=== PATIENT | female | born 1985 | race Caucasian/White ===

== ENCOUNTER → 2019-10-04 13:15 | Outpatient (BNVA) | payer OTHER, SELFPAY | PROVIDERS: Family Provider Physician Assistant Medical; PCP Physician Assistant Medical; Visit Provider Family Medicine | DX: J10.1 Influenza due to other identified influenza virus with other respiratory manifestations (principal); R50.9 Fever, unspecified | CPT/HCPCS: 87081; 87804; 87880 ==

== ENCOUNTER → 2019-11-03 12:38 | Outpatient (BNVA) | payer OTHER, SELFPAY | PROVIDERS: Family Provider Physician Assistant Medical; PCP Physician Assistant Medical; Visit Provider Nurse Practitioner Family | DX: N39.0 Urinary tract infection, site not specified (principal) | CPT/HCPCS: 81000 ==

== ENCOUNTER → 2020-06-18 13:26 | Outpatient (BNVA) | payer OTHER, SELFPAY | PROVIDERS: Family Provider Physician Assistant Medical; PCP Physician Assistant Medical; Visit Provider Nurse Practitioner Family | DX: J02.9 Acute pharyngitis, unspecified (principal); J01.40 Acute pansinusitis, unspecified | CPT/HCPCS: 87071; 87880 ==

== ENCOUNTER 2020-09-02 14:47 | Emergency (ER) | payer OTHER, SELFPAY ==
[2020-09-02 14:56] VITALS: BP 119/79; PULSE 81; RESP 16; TEMP 36.7; O2SAT 100; BMI 24.7
[2020-09-02 14:59] VITALS: BP 97/69; PULSE 79; RESP 18; O2SAT 98
[2020-09-02 15:59] VITALS: BP 108/71; PULSE 73; RESP 18; O2SAT 100
[2020-09-02 16:00] VITALS: BP 108/71; PULSE 108; RESP 18; O2SAT 100
--- NOTE | 2020-09-02 16:15 | ED_ITS ---
HPI - General Adult General: Chief complaint: Vaginal Bleeding Stated complaint: LESS THAN 20 WKS PREG/BLEEDING Time Seen by Provider: 09/02/20 15:55 History of Present Illness: HPI narrative: Patient is a well-appearing 35-year-old female who is G4 para 2 with 1 prior miscarriage and history of bleeding in the first trimester with both live births seen for painless vaginal bleeding today. She states first day last menstrual period was July 06, 2020. She has had no dysuria, frequency, burning, itching, or cramping. She use the restroom at work and saw blood in the toilet and got concerned. On arrival, she appears well and denies abdominal pain, nausea, vomiting, fever, cough. She has no other acute complaints. Of note, with her prior pregnancies, both she and her took medication for trichomoniasis. She states that since that time, she has had no symptoms and is not concerned about infection at this time. She already plans to see her DATA ENTRY SPECIALIST tomorrow. Should be discharged home in stable condition. Review of Systems General: Reports: 10 or more systems reviewed and unremarkable except in HPI and below PFSH ED PFSH: Social History Smoking and tobacco status: never smoked Alcohol intake: never Physical Exam Const: COMMON NORMALS: no acute distress, patient oriented x3 and alert HENMT: COMMON NORMALS: normocephalic and atraumatic HEAD & SCALP: normocephalic and atraumatic Eye: COMMON NORMALS: Equal, round and reactive pupils present, EOMs intact sundeep aterally and no scleral icterus PUPIL: Yes Equal, round and reactive pupils present Resp: COMMON NORMALS: normal respiratory effort and No retractions Cardio: COMMON NORMALS: regular rate, regular rhythm and No murmurs present (Cardio) RATE: regular rate RHYTHM: regular rhythm GI: COMMON NORMALS: Normal to inspection, nondistended, normoactive bowel sounds present, Soft to palpation and non-tender PALPATION: Yes Soft to palpation OTHER: Abdomen is soft and nontender. Bedside ultrasound reveals a single intrauterine with vigorous heartbeat. She has no active vaginal bleeding at this time and exam is deferred. Neuro: COMMON NORMALS: patient oriented x3 SENSORIUM/ORIENTATION: Yes alert Skin: COMMON NORMALS: no rashes or lesions noted GENERAL SKIN EXAM: no rashes or lesions noted Course Vital Signs: Vital signs: Vital Signs Temperature 98.0 F 09/02/20 14:56 Pulse Rate 74 09/02/20 16:21 Respiratory Rate 18 09/02/20 16:21 Blood Pressure 108/71 09/02/20 16:21 Pulse Oximetry 100 09/02/20 16:21 MDM - General Adult MDM Narrative: Medical decision making narrative: Patient remained hemodynamically stable throughout ED course. Bedside ultrasound shows a single intrauterine which appears viable at this time. She has no active bleeding or cramping. She has no fever. Urinalysis shows no evidence of infection. She plans to see her DATA ENTRY SPECIALIST doctor tomorrow. She will be discharged home in stable condition with close follow-up to DATA ENTRY SPECIALIST. She knows she is always welcome back in the emergency department should her symptoms get worse before outpatient follow-up. Lab Data: Labs: Lab Results 09/02/20 Range/Units 16:18 Urine Color Yellow (Yellow) Urine Appearance Hazy A (CLEAR) Urine pH 6 (5-7) Ur Specific Gravit y 1.020 (1.005-1.030) Urine Protein Neg (Negative) Urine Glucose (UA) Norm (Normal) Urine Ketones Negative (Negative) Urine Blood Neg (Negative) Urine Nitrate Negative (Negative) Urine Bilirubin Neg (Negative) Urine Urobilinogen Norm (Negative) mg/dL Ur Leukocyte Jane ase Negative (Negative) Amorphous Sediment Not Reportable Discharge Plan Discharge Patient Disposition: Home Clinical Impression: First trimester bleeding Condition: Stable Prescriptions: No Action Ness Allergy 1 tab PO QAM RF: 0 Tylenol Extra Strength 500 mg Tablet 1,000 mg PO PRN RF: 0 Vitamin C 500 mg Tablet 1,000 mg PO QAM RF: 0 28 mg iron- 800 mcg Tablet 1 tab PO QAM RF: 0 Discharge Orders: Discharge ED (Routine); Ordered 09/02/20 Ordered By: Bakari Moreira Referrals: William Cannon [Primary Care Provider] - Discharge Diet: Usual diet Discharge Activity: Resume usual activity Activity Restrictions/Additional Instructions: Your urine test shows no evidence of infection. Please follow-up with your DATA ENTRY SPECIALIST doctor as previously planned. You are always welcome back in the emergency department if you have further concerns, worse bleeding, or cramps. At this time, I do not see any other ways to decrease your chance of miscarriage. Bedside ultrasound showed a single intrauterine with vigorous heartbeat. Coding Level of Care Code ED Doughnut Icer for Chg Fwd Exam Detailed
[2020-09-02 16:21] VITALS: BP 108/71; PULSE 74; RESP 18; O2SAT 100
[2020-09-02 16:26] LABS: Add Urine Microscopic? YES; Bilirubin Urine Neg (Negative); Blood Urine Neg (Negative); Glucose Urine UA Norm (Normal); Ketones Urine Negative (Negative); Leukocyte Esterase Urine Negative (Negative); Nitrate Urine Negative (Negative); Protein Urine Neg (Negative); Urine Appearance Hazy (CLEAR); Urine Color Yellow (Yellow); Urobilinogen Urine Norm (Negative); pH Urine 6 (5-7)
[2020-09-02 16:52] LABS: Add Urine Culture? No; Bacteria Urine 2+ /hpf; Mucus Urine TRACE /hpf
[2020-09-02 16:53] VITALS: BP 108/71; PULSE 77; RESP 18; TEMP 36.6; O2SAT 100
== END 2020-09-02 16:59 | disposition home or self-care (01) ==
PROVIDERS: Emergency Provider Student in an Organized Health Care Education/Training Program; PCP Physician Assistant Medical
DX: O20.9 Hemorrhage in early pregnancy, unspecified (principal); Z3A.00 Weeks of gestation of pregnancy not specified
CPT/HCPCS: 12345; 81001; 99281; 99282

== ENCOUNTER 2021-03-29 19:50 | Inpatient (IN) | payer OTHER, SELFPAY ==
[2021-03-29] VITALS (11 sets, daily range): BP systolic 109–161; BP diastolic 53–84; PULSE 64–196; RESP 20; O2SAT 89–100; BMI 29.7
[2021-03-29 20:32] LABS: Basophils % 0.1 %; Eosinophils # 0.1 10^3/uL (0.0-0.8); Eosinophils % 1.4 %; Hematocrit 33.9 % (37.0-47.0); Hemoglobin 11.3 g/dL (11.5-15.3); Lymphocytes # 2.2 10^3/uL (0.8-4.8); Lymphocytes % 26.3 %; Mean Corpuscular HGB Conc 33.3 g/dL (30.0-36.0); Mean Corpuscular Hemoglobin 29.6 pg (28.0-34.0); Mean Corpuscular Volume 88.7 fl (81-99); Mean Platelet Volume 10.8 fL (7.4-10.4); Monocytes # 0.6 10^3/uL (0.2-0.9); Neutrophils # 5.42 10^3/uL (1.8-7.7); Neutrophils % 64.7 %; Nucleated Red Blood Cells % 0 %; Platelet Count 156 10^3/cmm (130-400); Red Blood Count 3.82 10^6/uL (4.1-5.3); Red Cell Distribution Width 14.5 % (12.1-15.1); White Blood Count 8.4 10^3/uL (4.0-10.0)
[2021-03-29] MEDS: miSOPROStol 100 mcg tablet 25 MCG SUBLINGUAL (20:53)
[2021-03-29 21:43] LABS: Nitrazine Paper, PH Positive
[2021-03-29] MEDS: lactated ringers 1,000 ML 999 ML IV (22:27)
[2021-03-29] MEDS: fentaNYL 50 mcg/mL INJ 2mL IVP (23:07)
--- NOTE | 2021-03-29 23:33 | ANES.PREANE2 ---
Pre-Anesthetic Assessment Pre-Anesthetic Assessment: Height/Weight: Height 1.6 m Weight 76.204 kg Pulse Resp BP 90 20 H 161/74 03/29/21 23:18 03/29/21 23:07 03/29/21 23:18 Preop Diagnosis: labor Proposed Procedure: labor= Was Beta Kanwal taken within 24 hours: N/A Was Clonidine taken within 24 hours: N/A Last Intake: 18:00 Social: Social History: No alcohol and No tobacco Exam: Pre-Anes Outpt Exam: alert, oriented x 3, clear to auscultation bilaterally and regular rate & rhythm Airway: Submandibular: WNL Cervical ROM: WNL MP: 2 Pulmonary: Pulmonary: None reported CV/HEM: CV/HEM: None reported : : None reported Hepatic: Hepatic: None reported GI: GI: None reported Metabolic: Metabolic: None reported Musc/skel: Musc/skel: None reported Neuropsych: Neuropsych: None reported Anesthetic Plan: ASA status: 2 Anesthesia: Regional (specify below) (epidural) Risk of > 500 ml blood loss (7ml/kg in children): No Meds/Allergies Current Medications: Current Medications Generic Name Dose Route Start Last Admin Trade Name Freq PRN Reason Stop Dose Admin Fentanyl 25 - 100 mcg 03/29/21 23:00 03/29/21 23:07 Fentanyl 50 Mcg/ Ml Inj 2ml IVP 25 mcg Q1H PRN Administration SEVERE PAIN Lactated Ringer's 1,000 mls @ 999 m ls/hr 03/29/21 22:20 03/29/21 22:27 Lactated Ringers IV 999 mls/hr .Q1H1M PRN Administration See label comment s PFSH Anesthesia PFSH: Social History Smoking and tobacco status: former smoker Alcohol intake: never Female Reproductive History: : 3 Data Anesthesia CBC & Chem 7: 03/29/21 20:15 Other Labs: Laboratory Results - last 48 hr 03/29/21 20:15 WBC 8.4 RBC 3.82 L Hgb 11.3 L Hct 33.9 L MCV 88.7 MCH 29.6 MCHC 33.3 RDW 14.5 Plt Count 156 MPV 10.8 H Neut % (Auto) 64.7 Lymph % (Auto) 26.3 Murray % (Auto) 7.0 Eos % (Auto) 1.4 Baso % (Auto) 0.1 Neut # (Auto) 5.42 Lymph # (Auto) 2.2 Murray # (Auto) 0.6 Eos # (Auto) 0.1 Baso # (Auto) 0.0 Nucleated RBC % (auto) 0 Nucleated RBCs # 0.0 Cardiac Studies: No Data to Display
[2021-03-29] MEDS: oxytocin 30 UNIT/500 ML BAG 500 UNIT IV (23:48)
--- NOTE | 2021-03-29 23:59 | ANES.PROC ---
Anesthesia Procedures Procedure/Date: 03/29/21 epidural Procedure Narrative: Spoke with pt on risk and benefits of epidural with consent signed. Place pt in sitting position and began to prep back. Pt with contraction and stated I need to push. Pt started to push. Epi aborted and pt found to be complete.
[2021-03-30] VITALS (22 sets, daily range): BP systolic 98–148; BP diastolic 56–84; PULSE 53–102; RESP 18; TEMP 36.2–36.4; O2SAT 98–99
--- NOTE | 2021-03-30 00:03 | PM.OPHPUD ---
Labor & Delivery H&P Update Date of Procedure: March 30, 2021 Date H&P Performed: 03/25/21 H&P update information: I have reviewed H&P completed within last 30 days, I have examined patient prior to procedure and Changes to prior documentation as noted here Changes to previous documentation: The patient is 4 cm dilated and having contractions occasionally Admission Diagnosis: Preop diagnosis: labor Planned procedure: Spontaneous vaginal delivery
--- NOTE | 2021-03-30 00:04 | P.PCNOB_ITS ---
Delivery Note: Date of delivery: March 30, 2021 Pre-delivery diagnoses: 3 para 1-0-1-1 at 38 weeks estimated gestational age with spontaneous rupture membranes Post-delivery diagnoses: Same Procedure: Spontaneous vaginal delivery Op report anesthesia: None Delivering Physician: Henrique Puentes Estimated blood loss (mL): 75 Pre-Delivery Course: The patient presented to the hospital 2 hours after having spontaneous rupture membranes. She was noted to have occasional contractions. Her cervix was 40% effaced. She was placed on Cytotec 25 mcg sublingual x1. She then progressed to complete without difficulty. Her was unremarkable. She was GBS negative. Her blood type was O+. Her initial glucose screen was positive, but her 3-hour glucose screen was negative. She is rubella nonimmune. Delivery: DELIVERY: The patient progressed to complete without difficulty. She delivered a male with a weight of 7 pounds 15 ounces with Apgars of 8, 10. The baby was delivered from the WESLY position and placed on the mother's abdomen. The cord was then clamped and cut 1 minute after delivery. There was no nuchal cord. There was no meconium. The placenta and 3 vessel cord were delivered intact shortly thereafter. The perineum and vaginal vault were carefully examined. No lacerations were noted. Both the mother and the baby were in st able condition. Post-Delivery Status: Good A&P Assessment and plan (1) 38 weeks gestation of : Status: Acute (2) Spontaneous vaginal delivery: Status: Acute Coding Level of Care Code Acute Mosaic Technician for Chg Fwd Diagnoses 38 weeks gestation of Z3A.38 Spontaneous vaginal delivery O80
[2021-03-30] MEDS: dextrose 5%-lactated ringers 1,000 ML 125 ML IV (00:08)
[2021-03-30] MEDS: prenatal vitamin Capsule 1 CAP PO (09:30)
[2021-03-30] MEDS: ibuprofen 800 mg tablet PO ×3 (09:30→21:07)
[2021-03-30] MEDS: docusate sodium 100 mg Capsule PO ×2 (09:30→18:11)
--- NOTE | 2021-03-30 10:00 | PC.NURSE ---
Dr. Puentes called and asked about scheduling a tubal for the next morning. This nurse asked the patient if she still wanted to have a tubal while in the hospital and patient expressed that they are looking into other options. Patient will schedule a tubal at six weeks, if it is desired.
[2021-03-30 13:32] LABS: Hematocrit 34.6 % (37.0-47.0); Hemoglobin 11.3 g/dL (11.5-15.3); Mean Corpuscular HGB Conc 32.7 g/dL (30.0-36.0); Mean Corpuscular Hemoglobin 29.4 pg (28.0-34.0); Mean Corpuscular Volume 90.1 fl (81-99); Mean Platelet Volume 11.4 fL (7.4-10.4); Platelet Count 158 10^3/cmm (130-400); Red Blood Count 3.84 10^6/uL (4.1-5.3); Red Cell Distribution Width 14.6 % (12.1-15.1); White Blood Count 9.4 10^3/uL (4.0-10.0)
[2021-03-31 01:00] VITALS: RESP 15
[2021-03-31 03:43] VITALS: BP 108/68; PULSE 65; TEMP 35.8
--- NOTE | 2021-03-31 07:37 | PM.OBGYDC ---
Discharge Providers SOCIAL MEDIA SR STRATEGY MANAGER Date of Admission: 03/29/21 19:50 Date of Discharge: 03/31/21 Attending Provider at Admission: Henrique Puentes MD Attending Provider at Discharge: Henrique Puentes MD Primary Care Provider: William Cannon Diagnoses at Discharge Discharge Diagnosis (1) 38 weeks gestation of : Status: Acute (2) Spontaneous vaginal delivery: Status: Acute Reason for Visit Reason for Visit: Poss SROM Hospital Course Hospital Course The patient presented to the hospital at 38 weeks estimated gestational age with spontaneous rupture of membranes. A single Cytotec was placed sublingually, and the patient progressed to complete without difficulty 6 hours after rupturing her membranes. Her delivery was unremarkable. Her course was also been unremarkable. Her bleeding has been within normal limits. She has breast-fed well. There have been no concerns. Information Peripartum Data: Delivery Method: Vaginal Physical Exam Narrative: EXAM NARRATIVE: The patient is alert. She appears comfortable. Her heart has a regular rate and rhythm with no murmurs appreciated. Lungs are clear to auscultation bilaterally. Her fundus is firm and below the umbilicus. Discharge Data Data Completed and Pending: Pending at discharge Category Date Time Status [facility] SARS-CoV-2 RNA Routine Lab 03/30/21 00:38 Received Labs from last 24 hours 03/30/21 12:52 WBC 9.4 RBC 3.84 L Hgb 11.3 L Hct 34.6 L MCV 90.1 MCH 29.4 MCHC 32.7 RDW 14.6 Plt Count 158 MPV 11.4 H Vitals: Last Vital Signs Temp 96.4 F L 03/31/21 03:43 Pulse 65 03/31/21 03:43 Resp 15 03/31/21 01:00 BP 108/68 03/31/21 03:43 Pulse Ox 99 03/30/21 16:11 Discharge Plan Discharge Patient Disposition: Home Condition: Stable Prescriptions: New ibuprofen 800 mg Tablet 800 mg PO TID Qty: 45 RF: 0 Continued Ness Allergy 1 tab PO QAM RF: 0 ascorbic acid (vitamin C) [Vitamin C] 500 mg Tablet 1,000 mg PO QAM RF: 0 PNV cmb#95-ferrous fumarate-FA [] 28 mg iron- 800 mcg Tablet 1 tab PO QAM RF: 0 Discharge Orders: Discharge Order (Routine); Ordered 03/31/21 Ordered By: Henrique Puentes Referrals: Henrique Puentes MD [Physician] - 6 Weeks Discharge Diet: Usual diet Discharge Activity: Limit activity as instructed Patient Instructions: Vaginal Delivery (DC), OB Discharge Report, OB Food/Drug Interaction Guide, Opioid Safety, OB Proud Parent Packet, OB Vaginal Deliveries, Abnormal Bleeding, Depression Discharge Attestations SOCIAL MEDIA SR STRATEGY MANAGER Time Spent in Discharge Care*: less than 30 min Specific Discharge Activities: Specific discharge activities: educating patient Coding Level of Care Code Acute Automotive Service Writer for Chg Fwd Diagnoses 38 weeks gestation of Z3A.38 Spontaneous vaginal delivery O80
[2021-03-31 09:04] VITALS: BP 123/69; PULSE 75; TEMP 36.3
[2021-03-31 09:12] VITALS: RESP 17
[2021-03-31] MEDS: ibuprofen 800 mg tablet PO (09:34)
[2021-03-31] MEDS: docusate sodium 100 mg Capsule PO (09:34)
[2021-03-31] MEDS: prenatal vitamin Capsule 1 CAP PO (09:35)
[2021-03-31] MEDS: measles,mumps,rubella pf Vial (w/diluent) 0.5 ML SUBCUT (09:40)
--- NOTE | 2021-03-31 11:05 | PC.NURSE ---
Mom discharged to room in with baby at this time
[2021-03-31 19:42] LABS: Quest SARS-CoV-2 RNA NOT DETECTED (NOT DETECTED)
== END 2021-03-31 11:05 | disposition home or self-care (01) | DRG 807 ==
PROVIDERS: Admitting Provider Family Medicine; PCP Physician Assistant Medical; Visit Provider Family Medicine
DX: O80 Encounter for full-term uncomplicated delivery (principal); Z37.0 Single live birth; Z3A.38 38 weeks gestation of pregnancy
CPT/HCPCS: 12345; 36415; 59025; 59409; 83986; 85025; 85027; 87635; 90707; 96372; 96374; 98960; J3010

== ENCOUNTER → 2022-04-04 11:02 | Outpatient (BNVA) | payer MEDICAID, SELFPAY | PROVIDERS: PCP Family Medicine; Visit Provider Registered Nurse Neonatal Intensive Care | DX: J02.9 Acute pharyngitis, unspecified (principal) | CPT/HCPCS: 87880 ==

== ENCOUNTER → 2022-04-20 17:27 | Outpatient (BNVA) | payer MEDICAID, SELFPAY | PROVIDERS: PCP Family Medicine; Visit Provider Registered Nurse Neonatal Intensive Care | DX: R50.9 Fever, unspecified (principal); Z20.822 Contact with and (suspected) exposure to COVID-19 | CPT/HCPCS: 87426 ==

== ENCOUNTER 2022-08-20 10:07 | Outpatient (CLI) | payer MEDICAID, SELFPAY ==
--- NOTE | 2022-08-20 10:19 | US_ITS ---
WS: [id number] OB ultrasound, 08/20/2022 Clinical Data: NORMAL 1ST /2ND TRIMESTER Comparison: None. Findings: There is a single intrauterine in the vertex presentation. Cervix measures 2.93 cm and is c losed The placenta is Anterior and grade 0. There is a normal amount of amnionic fluid. The hea rt rate is 150 beats per minute. Measurements of growth and development: BPD: 4.9 cm 20 weeks 6 days HC: 18.3 cm 20 weeks 5 days AC: 15.5 cm 20 weeks 5 days FL: 3.5 cm 21 weeks 1 day The estimated weight is 384 or approximately 18 ounces. The estimated gestational age is 20w6d with an MEL of approximately 01/01/2023. anatomy show a normal stomach, diaphragm, nose and lips, kidneys, bladder, RVOT, LVOT, cord ins ertion, three-vessel cord, entire spine, four-chamber heart, lateral cerebral ventricles, cerebellum and cisterna magna. US/US OB >= 14 weeks fetus [id number] Impression: 1. Single intrauterine in vertex presentation. 2. Estimated gestational age 20w6d with an MEL of 01/01/2023. 3. heart rate 150 beats per minute.
== END 2022-08-20 10:08 | disposition home or self-care (01) ==
PROVIDERS: PCP Family Medicine; Visit Provider Family Medicine
DX: Z34.02 Encounter for supervision of normal first pregnancy, second trimester (principal); Z3A.20 20 weeks gestation of pregnancy
CPT/HCPCS: 76805

== ENCOUNTER 2022-12-04 15:50 | Outpatient (CLI) | payer MEDICAID, SELFPAY ==
[2022-12-04 16:00] VITALS: BP 113/77; PULSE 67; BMI 29.5
[2022-12-04 16:16] VITALS: RESP 17
[2022-12-04 16:17] VITALS: BP 117/75; PULSE 68
== END 2022-12-04 16:25 | disposition home or self-care (01) ==
LOC: OPOB 15:55 → OBGYN 15:56
PROVIDERS: PCP Family Medicine; Visit Provider Family Medicine
DX: O24.419 Gestational diabetes mellitus in pregnancy, unspecified control (principal)
CPT/HCPCS: 59025

== ENCOUNTER 2022-12-11 14:59 | Outpatient (CLI) | payer MEDICAID, SELFPAY ==
[2022-12-11 15:29] VITALS: BP 113/75; PULSE 72
[2022-12-11 15:30] VITALS: BMI 30.4
--- NOTE | 2022-12-11 15:48 | PC.NURSE ---
1530 THIS CHEMICALS FERMENTATION OPERATOR WAS UNAWARE THAT PATIENT WAS EVEN HERE, HAM DE LA TORRE CHECKED HER IN AND DID NOT SAY ANYTHING TO ME ABOUT NOR DID KEEGAN CARREON OR DAVID KNOW SHE WAS HERE. THIS CHEMICALS FERMENTATION OPERATOR APOLOGIZED TO HER FOR HER WAIT.
[2022-12-11 15:50] VITALS: BP 112/75; PULSE 74
[2022-12-11 15:56] VITALS: BP 112/75; PULSE 74; RESP 18
== END 2022-12-11 15:55 | disposition home or self-care (01) ==
LOC: OPOB 14:59 → OBGYN 15:01
PROVIDERS: PCP Family Medicine; Visit Provider Family Medicine
DX: O24.419 Gestational diabetes mellitus in pregnancy, unspecified control (principal); Z3A.00 Weeks of gestation of pregnancy not specified
CPT/HCPCS: 59025; 99211

== ENCOUNTER 2022-12-18 13:57 | Outpatient (CLI) | payer MEDICAID, SELFPAY ==
[2022-12-18 14:07] VITALS: BMI 26.2
[2022-12-18 14:11] VITALS: BP 117/71; PULSE 63
[2022-12-18 14:30] VITALS: BP 122/74; PULSE 68
[2022-12-18 14:33] VITALS: BP 116/73; PULSE 77
== END 2022-12-18 14:45 | disposition home or self-care (01) ==
LOC: OPOB 14:03 → OBGYN 14:04
PROVIDERS: PCP Family Medicine; Visit Provider Family Medicine
DX: Z36.9 Encounter for antenatal screening, unspecified (principal)
CPT/HCPCS: 59025; 99211

== ENCOUNTER 2022-12-19 22:58 | Inpatient (IN) | payer MEDICAID, SELFPAY ==
[2022-12-19 22:11] VITALS: BMI 29.7
[2022-12-19 22:14] VITALS: BP 129/80; PULSE 63; RESP 16
[2022-12-19 22:17] VITALS: TEMP 35.8
[2022-12-19] MEDS: lactated ringers 1,000 ML 999 ML IV (23:21)
[2022-12-19 23:44] LABS: Basophils % 0.3 %; Eosinophils # 0.2 10^3/uL (0.0-0.8); Eosinophils % 2.7 %; Hematocrit 34.4 % (37.0-47.0); Lymphocytes # 2.2 10^3/uL (0.8-4.8); Mean Corpuscular Volume 90.8 fl (81-99); Mean Platelet Volume 11.3 fL (7.4-10.4); Monocytes # 0.7 10^3/uL (0.2-0.9); Monocytes % 8.4 %; Neutrophils # 4.63 10^3/uL (1.8-7.7); Neutrophils % 60.1 %; Nucleated Red Blood Cells % 0 %; Platelet Count 147 10^3/cmm (130-400); Red Blood Count 3.79 10^6/uL (4.1-5.3); Red Cell Distribution Width 14.5 % (12.1-15.1); White Blood Count 7.7 10^3/uL (4.0-10.0)
[2022-12-20] VITALS (42 sets, daily range): BP systolic 97–131; BP diastolic 55–88; PULSE 62–173; RESP 16–17; TEMP 35.9–36.5; O2SAT 98–100; BMI 29.7
--- NOTE | 2022-12-20 00:24 | ANES.PREANE2 ---
Pre-Anesthetic Assessment Height/Weight: Height 1.6 m Weight 76.204 kg Temp Pulse BP 96.4 F L 63 129/80 12/19/22 22:17 12/19/22 22:14 12/19/22 22:14 Preop Diagnosis: labor pain epidural Familial anesthetic complications: none Was Beta Kanwal taken within 24 hours: N/A Was Clonidine taken within 24 hours: N/A Social No alcohol and No tobacco Exam alert, oriented x 3, clear to auscultation bilaterally and regular rate & rhythm Airway Submandibular: within normal limits Cervical ROM: within normal limits Mallampati: Class II Dentition: full Pulmonary None reported CV/HEM None reported None reported Hepatic None reported GI Gastroesophageal Reflux Disease Metabolic Diabetes Mellitus (gestational) Musc/skel None reported Neuropsych Depression Anesthetic Plan ASA status: 2 Anesthesia: Regional (specify below) Risk of > 500 ml blood loss (7ml/kg in children): No Medications/Allergies Home Medications Medication Instructions Recorded Confirmed Last Taken Type vit no.95-ferrous 1 tab PO QAM 09/02/20 12/19/22 12/19/22 History fumarate 28 mg-folic acid 800 mcg tablet () Ness 1 tab PO DAILY 12/19/22 12/19/22 12/19/22 History Allergies Allergy/AdvReac Type Severity Reaction Status Date / Time cephalexin Allergy rash Verified 12/19/22 23:39 Current Medications Generic Name Dose Route Start Last Admin Trade Name Freq PRN Reason Stop Dose Admin Lactated Ringer's 1,000 mls @ 999 mls/hr 12/19/22 23:17 12/19/22 23:21 Lactated Ringers IV 999 mls/hr .Q1H1M PRN Administration See label comments [facility] Anesthesia Social History Smoking and tobacco status: current every day smoker Alcohol intake: never Substance/Drug Use: never Female Reproductive History : 4 Data Anesthesia 12/19/22 22:45 Short CBC 12/19/22 Range/Units 22:45 WBC 7.7 (4.0-10.0) 10^3/uL Hgb 11.0 L (11.5-15.3) g/dL Hct 34.4 L (37.0-47.0) % MCV 90.8 (81-99) fl Plt Count 147 (130-400) 10^3/cmm Neut % (Auto) 60.1 % Neut # (Auto) 4.63 (1.8-7.7) 10^3/uL Cardiac Studies: No Data to Display
[2022-12-20] MEDS: dextrose 5%-lactated ringers 1,000 ML 125 ML IV (00:52)
--- NOTE | 2022-12-20 00:55 | P.ANES_ITS ---
Anesthesia Procedures Procedure/Date: 12/20/22 epidural Procedure Narrative: epidural complete, bolus given, epidural pump initiated with TEACHER EDUCATION DIRECTOR education given, vitals taken during procedure and satisfactory throughout, patient admits to decrease pain, report of procedure to OB RN Epidural: Time Out Performed: Yes Consents Signed: Procedure Consent Consent: requested by attending/covering physician, from patient, risks and benefits reviewed and patient agrees to proceed Lumbar Level: L3-L4 Epidural position: sitting Epidural procedure: sterile prep of area, 1% lidocaine to numb the area (3 mL), 18 g needle, negative for paresthesia passed, neg for paresthesia, test dose given, 1.5% xylocaine 1:200k epi (5 mL), 0.2% Ropivacaine bolus ml (5 mL), placed PCEA, no systemic response, sterile dressing applied, L.U.D. no apparent complications and 0.2% Ropiavacaine @ mls/hr (13 mL/hr)
--- NOTE | 2022-12-20 04:59 | PM.OPHPUD ---
Labor & Delivery H&P Update Date of Procedure: December 20, 2022 Date H&P Performed: 03/25/21 Admission Diagnosis: 1. 37-year-old 4 para 2-0-1-2 at 38 weeks estimated gestational age presenting with spontaneous rupture of membranes 2. Well-controlled gestational diabetes mellitus Preop diagnosis: labor pain Planned procedure: Spontaneous vaginal delivery Other information: The patient is a 37-year-old female who has had a remarkable for having gestational diabetes. Her gestational diabetes has been diet controlled. She has had excellent control of her gestational diabetes. Her has otherwise been unremarkable. Her labs have been significant for the following. Her blood type is O+. Her antibody screen was negative. She is rubella immune. She was GBS negative. The remainder of her infectious disease profile was within normal limits. She failed both her 1 hour and 3-hour glucose screen. Most of her blood sugars have been between 80 and 110 with an occasional elevated blood sugar. Related Problem List Diagnoses (1) 38 weeks gestation of : (2) Gestational diabetes mellitus: (3) Rupture of membranes with clear amniotic fluid: A&P Assessment and plan (1) 38 weeks gestation of : I anticipate spontaneous vaginal delivery. Status: Resolved (2) Gestational diabetes mellitus: The patient had excellent control of her blood sugars. We will check twice a day blood sugars but no further testing will be required due to the fact that it was diet controlled. Status: Acute (3) Rupture of membranes with clear amniotic fluid: Status: Acute
--- NOTE | 2022-12-20 05:45 | PM.DELIVERY ---
Delivery Note: Date of delivery: December 20, 2022 Pre-delivery diagnoses: 1. 37-year-old 4 para 2-0-1-2 at 38 weeks estimated gestational age presenting with spontaneous rupture of membranes 2. Diet-controlled GDM Post-delivery diagnoses: Status post spontaneous vaginal delivery Procedure: Spontaneous vaginal delivery Delivering Physician: Henrique Puentes Estimated blood loss (mL): 200 Pre-Delivery Course: The patient presented to the hospital with spontaneous rupture of membranes. She was having contractions which continued to progress spontaneously. She received an epidural. She then progressed to complete without any problems. Delivery: DELIVERY: The patient progressed to complete without difficulty. She delivered a female with a weight of 6 pounds 5 ounces with Apgars of 9, 10. The baby was delivered from the OP position. The baby's mouth and nose were suctioned at the site of the perineum. The baby was then completely delivered and placed on the mother's abdomen. The cord was then clamped and cut. There was no nuchal cord. There was no meconium. The placenta and 3 vessel cord were delivered intact shortly thereafter. The perineum and vaginal vault were carefully examined. No lacerations were noted. Both the mother and the baby were in stable condition. History History History 3 Term 2 0 Miscarriages/Ectopic 1 Living Children 2 A&P Assessment and plan (1) Rupture of membranes with clear amniotic fluid: (2) Gestational diabetes mellitus: (3) Spontaneous vaginal delivery: I anticipate routine care. We will check her blood sugars twice a day to make sure her control is not as good as we expected to be. Coding Level of Care Code Acute Code for Chg Fwd Diagnoses Rupture of membranes with clear amniotic fluid Gestational diabetes mellitus O24.419 Spontaneous vaginal delivery O80
[2022-12-20] MEDS: lanolin oint 7 gm 1 APPLIC TOPICAL (09:00)
[2022-12-20] MEDS: benzocaine-menthol 78 gm Canister 1 SPRAY TOPICAL (09:00)
[2022-12-20] MEDS: ibuprofen 800 mg tablet PO ×3 (09:01→21:09)
[2022-12-20] MEDS: docusate sodium 100 mg Capsule PO ×2 (09:01→21:09)
[2022-12-20] MEDS: prenatal vitamin Capsule 1 CAP PO (09:01)
[2022-12-20 18:09] LABS: Hematocrit 28.9 % (37.0-47.0); Hemoglobin 9.4 g/dL (11.5-15.3); Mean Corpuscular HGB Conc 32.5 g/dL (30.0-36.0); Mean Corpuscular Volume 92.3 fl (81-99); Mean Platelet Volume 11.1 fL (7.4-10.4); Platelet Count 141 10^3/cmm (130-400); Red Blood Count 3.13 10^6/uL (4.1-5.3); Red Cell Distribution Width 14.6 % (12.1-15.1); White Blood Count 8.5 10^3/uL (4.0-10.0)
[2022-12-21 05:18] VITALS: TEMP 36.3
[2022-12-21 05:19] VITALS: BP 102/65; PULSE 66; RESP 16
--- NOTE | 2022-12-21 07:16 | P.DS_ITS ---
Discharge Providers TRAFFIC WORKFORCE REPRESENTATIVE Date of Admission: 12/19/22 22:58 Date of Discharge: 12/21/22 Attending Provider at Admission: Conor Langston MD Attending Provider at Discharge: Henrique Puentes Primary Care Provider: Henrique Puentes MD Diagnoses at Discharge Discharge Diagnosis (1) 38 weeks gestation of : Status: Resolved (2) Gestational diabetes mellitus: Status: Acute (3) Rupture of membranes with clear amniotic fluid: Status: Acute Reason for Visit Reason for Visit: Possible ROM Hospital Course Hospital Course The patient presented to the hospital with spontaneous rupture of membranes. She then presented to the hospital where she was found to have increasing contractions. An epidural was placed. She progressed to complete and had an unremarkable delivery of a healthy female . Her course was unremarkable. She breast-fed well. Her bleeding has been within normal limits. Her pain has been well controlled. She had gestational diabetes, but had normal sugars during her hospital stay. Information Peripartum Data: Infant Delivery Method: Vaginal Physical Exam Narrative: The patient is alert. She appears comfortable. Her heart has a regular rate and rhythm with no murmurs appreciated. Lungs are clear to auscultation bilaterally. Her fundus is firm and below the umbilicus. Urinary Catheter Management: Davison Latex: Cath Placed During This Visit: yes Urinary Catheter Date of Insertion: 12/20/22 Urinary Catheter Time of Insertion: 01:20 History History History 3 Term 2 0 Miscarriages/Ectopic 1 Living Children 2 Discharge Data Studies Completed and Pending Laboratory Results WBC 8.5 10^3/uL (4.0-10.0) 12/20/22 17:51 RBC 3.13 10^6/uL (4.1-5.3) L 12/20/22 17:51 Hgb 9.4 g/dL (11.5-15.3) L 12/20/22 17:51 Hct 28.9 % (37.0-47.0) L 12/20/22 17:51 MCV 92.3 fl (81-99) 12/20/22 17:51 MCH 30.0 pg (28.0-34.0) 12/20/22 17:51 MCHC 32.5 g/dL (30.0-36.0) 12/20/22 17:51 RDW 14.6 % (12.1-15.1) 12/20/22 17:51 Plt Count 141 10^3/cmm (130-400) 12/20/22 17:51 MPV 11.1 fL (7.4-10.4) H 12/20/22 17:51 Neut % (Auto) 60.1 % 12/19/22 22:45 Lymph % (Auto) 28.0 % 12/19/22 22:45 [place] % (Auto) 8.4 % 12/19/22 22:45 Eos % (Auto) 2.7 % 12/19/22 22:45 Baso % (Auto) 0.3 % 12/19/22 22:45 Neut # (Auto) 4.63 10^3/uL (1.8-7.7) 12/19/22 22:45 Lymph # (Auto) 2.2 10^3/uL (0.8-4.8) 12/19/22 22:45 [place] # (Auto) 0.7 10^3/uL (0.2-0.9) 12/19/22 22:45 Eos # (Auto) 0.2 10^3/uL (0.0-0.8) 12/19/22 22:45 Baso # (Auto) 0.0 10^3/uL (0.0-0.1) 12/19/22 22:45 Nucleated RBC % (auto) 0 % 12/19/22 22:45 Nucleated RBCs # 0.0 /100WBC 12/19/22 22:45 Vitals Last Vital Signs Temp 97.3 F L 12/21/22 05:18 Pulse 66 12/21/22 05:19 Resp 16 12/21/22 05:19 BP 102/65 12/21/22 05:19 Pulse Ox 98 12/20/22 05:21 O2 Del Method Room Air 12/21/22 05:19 Discharge Plan Discharge Patient Disposition: Home Condition: Stable Prescriptions: New ibuprofen 800 mg Tablet 800 mg PO TID Qty: 45 0RF Continued PNV cmb#95-ferrous fumarate-FA [] 28 mg iron- 800 mcg Tablet 1 tab PO QAM Ness 1 tab PO DAILY Discharge Orders: Discharge Order (Routine); Ordered 12/21/22 Ordered By: Henrique Puentes Referrals: Conor Perry MD [Physician] - (Laparoscopic tubal ligation) Henrique Puentes MD [Primary Care Provider] - 6 Weeks Discharge Diet: Usual diet Discharge Activity: Limit activity as instructed Patient Instructions: Opioid Safety Plan of Treatment: Continue to monitor diet. Check blood glucose levels a couple of times a week for the next month to ensure the blood sugars are within normal limits. Discharge Attestations TRAFFIC WORKFORCE REPRESENTATIVE Time Spent in Discharge Care*: less than 30 min Coding Level of Care Code Acute Code for Chg Fwd Diagnoses 38 weeks gestation of Z3A.38 Gestational diabetes mellitus O24.419 Rupture of membranes with clear amniotic fluid
--- NOTE | 2022-12-21 07:59 | ANE.PACU2 ---
Inpatient post-anesthesia follow up: Airway intact: Yes Vital signs: Temperature 97.3 F Pulse Rate 66 Respiratory Rate 16 Blood Pressure 102/65 Pulse Oximetry 98 Oxygen Delivery Me thod Room Air Oxygen Flow Rate Fraction of Inspir ed Oxygen Hydration adequate: Yes Nausea and vomiting: No Pain level: 2 Mental status: Baseline
--- NOTE | 2022-12-21 09:01 | PC.NURSE ---
Patient asked if nurses were available to watch infant while she showers, I told her that was fine and brought back to nurses station with me while the patient showers.
[2022-12-21] MEDS: ibuprofen 800 mg tablet PO (09:50)
[2022-12-21] MEDS: prenatal vitamin Capsule 1 CAP PO (09:50)
[2022-12-21] MEDS: docusate sodium 100 mg Capsule PO (09:50)
[2022-12-21 09:59] VITALS: BP 114/69; PULSE 96; TEMP 36.4
[2022-12-21 10:00] VITALS: BP 114/69; PULSE 96; RESP 16; TEMP 36.4
[2022-12-21 12:56] VITALS: BP 117/72; PULSE 66
[2022-12-21 13:45] VITALS: BP 117/72; PULSE 66; RESP 16; TEMP 36.7
== END 2022-12-21 13:45 | disposition home or self-care (01) | DRG 807 ==
LOC: OPOB 23:00 → OBGYN 23:00
PROVIDERS: Admitting Provider Family Medicine; PCP Family Medicine; Visit Provider Family Medicine
DX: O24.420 Gestational diabetes mellitus in childbirth, diet controlled (principal); Z37.0 Single live birth; Z3A.38 38 weeks gestation of pregnancy
CPT/HCPCS: 12345; 36415; 51702; 59025; 59409; 83986; 85025; 85027; 98960; 99211; J2795; J7120; J7121

== ENCOUNTER 2023-03-02 15:17 | Observation (INO) | payer MEDICAID, SELFPAY ==
[2023-02-28 10:41] LABS: OR HCG Qualitative Urine Negative (Negative)
--- NOTE | 2023-02-28 10:43 | P.ANESASSM_ITS ---
Pre-Anesthetic Assessment Height/Weight: Height 1.6 m Operation Date: 03/02/23 14:15 Proposed Procedures p Laparoscopic bilateral salpingectomy 94736,Z30.2(Bilateral) - Conor Perry MD Familial anesthetic complications: none Was Beta Kanwal taken within 24 hours: N/A Was Clonidine taken within 24 hours: N/A Social No alcohol and No tobacco Exam alert, oriented x 3, clear to auscultation bilaterally and regular rate & rhythm Airway Submandibular: within normal limits Cervical ROM: within normal limits Mallampati: Class II Dentition: full History/ROS No significant history except as noted Anesthetic Plan ASA status: 1 Anesthesia: General Medications/Allergies Home Medications Medication Instructions Recorded Confirmed Last Taken Type vit no.95-ferrous 1 tab PO QAM 09/02/20 02/28/23 02/27/23 History fumarate 28 mg-folic acid 800 mcg tablet () Ness 1 tab PO DAILY 12/19/22 02/28/23 02/27/23 History Allergies Allergy/AdvReac Type Severity Reaction Status Date / Time cephalexin Allergy rash Verified 02/22/23 08:10 ON LICENSE OF [facility] Anesthesia Family History (Updated 01/25/23 @ 13:55 by Roslyn Mcintyre LPN) Family/Other Breast cancer Grandfathers sister Grandfather Diabetes paternal Hypertension paternal Stroke paternal Mother Heart disease Grandmother Heart disease maternal and paternal Stroke paternal Denies family history of Colon cancer Ovarian cancer Hypercholesteremia Uterine cancer Thyroid disease Data Anesthesia Cardiac Studies: No Data to Display
[2023-02-28 11:06] LABS: Basophils % 0.3 %; Eosinophils # 0.2 10^3/uL (0.0-0.8); Eosinophils % 3.6 %; Hematocrit 37.1 % (37.0-47.0); Lymphocytes # 1.6 10^3/uL (0.8-4.8); Lymphocytes % 27.2 %; Mean Corpuscular HGB Conc 32.3 g/dL (30.0-36.0); Mean Corpuscular Hemoglobin 28.8 pg (28.0-34.0); Mean Corpuscular Volume 89.2 fl (81-99); Mean Platelet Volume 10.7 fL (7.4-10.4); Monocytes # 0.4 10^3/uL (0.2-0.9); Monocytes % 6.1 %; Neutrophils # 3.68 10^3/uL (1.8-7.7); Neutrophils % 62.6 %; Nucleated Red Blood Cells % 0 %; Platelet Count 168 10^3/cmm (130-400); Red Blood Count 4.16 10^6/uL (4.1-5.3); Red Cell Distribution Width 13.2 % (12.1-15.1); White Blood Count 5.9 10^3/uL (4.0-10.0)
[2023-02-28 11:17] LABS: Bilirubin Urine Neg (Negative); Blood Urine Trace (Negative); Glucose Urine UA Norm (Normal); Ketones Urine Negative (Negative); Leukocyte Esterase Urine Negative (Negative); Nitrate Urine Negative (Negative); Protein Urine Neg (Negative); Urine Appearance SL Hazy (CLEAR); Urine Color Yellow (Yellow); Urobilinogen Urine Norm (Negative); pH Urine 5 (5-7)
[2023-02-28 11:18] LABS: Add Urine Microscopic? YES; WBC Urine 0-4 /hpf (0-5)
[2023-02-28 11:19] LABS: Add Urine Culture? No; Bacteria Urine TRACE /hpf; Mucus Urine 2+ /hpf
[2023-02-28 11:21] LABS: Alanine Aminotransferase 26 U/L (0-33); Albumin Level 4.5 g/dL (3.5-5.2); Alkaline Phosphatase 119 U/L (35-105); Anion Gap 16.8 (5-19); Aspartate Amino Transferase 19 U/L (0-32); Blood Urea Nitrogen 21 mg/dL (6-20); Calcium 9.6 mg/dL (8.5-10.5); Carbon Dioxide 24 mmol/L (22-29); Chloride 102 mmol/L (98-107); Globulin 3.2 g/dL (1.3-4.6); Glomerular Filtration Rate 95.2 mL/min (90-130); Glucose 78 mg/dL (65-115); Osmolality Calculated 290 mOsm/kg (285-295); Potassium 3.8 mmol/L (3.5-5.1); Sodium 139 mmol/L (136-145); Total Bilirubin 0.7 mg/dL (0.15-1.2); Total Protein 7.7 g/dL (6.6-8.7)
[2023-03-02] VITALS (18 sets, daily range): BP systolic 109–151; BP diastolic 70–92; PULSE 63–91; RESP 11–18; TEMP 36.2–36.5; O2SAT 93–100; BMI 26.2
[2023-03-02] MEDS: vancomycin 1,000 MG in sodium chloride 0.9% 250 ML 250 MG IV ×2 (12:32→13:09)
--- NOTE | 2023-03-02 12:44 | W.PM.OPSUD ---
Surgery/Procedure H&P Update DATE OF PROCEDURE: March 02, 2023 DATE H&P PERFORMED: 02/22/23 H&P UPDATE INFORMATION: I have reviewed H&P completed within last 30 days, I have examined patient prior to procedure and No changes to prior documentation PREOP DIAGNOSIS: Desire permanent sterilization PLANNED PROCEDURE: Operation Date: 03/02/23 13:35 Proposed Procedures p Laparoscopic bilateral salpingectomy 36172,Z30.2(Bilateral) - Conor Perry MD
--- NOTE | 2023-03-02 13:16 | P.ANESUD_ITS ---
Pre-Anesthetic Update Pre-Anesthetic Assessment: Date of Surgery/Procedure: 03/02/23 Preop Alexandra gnosis: Desire permanent sterilization Proposed Procedure: Operation Date: 03/02/23 13:35 Proposed Procedures p Laparoscopic bilateral salpingectomy 05060,Z30.2(Bilateral) - Conor Perry MD Any changes to Pre-Anesthetic Assessment?: No Last Intake: Intake Last Liquid Date 03/01/23 Last Liquid Time 18:00 Last Solid Date 03/01/23 Last Solid Time 18:00 Vitals: Temperature 97.7 F 03/02/23 12:02 Temperature Source Temporal Artery S can 03/02/23 12:02 Pulse Rate 63 03/02/23 12:02 Respiratory Rate 18 03/02/23 12:02 Blood Pressure 111/71 03/02/23 12:02 Blood Pressure Charlee n 84 03/02/23 12:02 Pulse Oximetry 99 03/02/23 12:02 Oxygen Delivery Me thod Room Air 03/02/23 12:24 Exam: Pre-Anes Outpt Exam: alert, oriented x 3, clear to auscultation bilaterally and regular rate & rhythm Cardiac Studies: No Data to Display
--- NOTE | 2023-03-02 16:09 | P.OP_ITS ---
Operative Report Date of procedure: March 02, 2023 Pre-op diagnosis: Preop Diagnosis Desire permanent sterilization Post-op diagnosis: Desire permanent sterilization. Uterine perforation Procedure done: Laparoscopic bilateral salpingectomy. Laparotomy. Uterine repair Specimens removed/disposition: Left and right fallopian tube Surgeon: Conor Perry MD Estimated blood loss (mL): 200 IV fluids (mL): 1,300 Complications: Uterine perforation at the end of the procedure Procedure: After informed consent, the patient was taken to the operating room where general anesthesia was administered. She was placed in the dorsal lithotomy position and prepped and draped in sterile fashion. Pre-Procedure Time-Out verifying the correct patient identity, correct procedure verified with consent, correct site and side, correct patient position, availability of correct implants and any special equipment or requirements was performed and acknowledge by the OR team. The patient was examined under anesthesia and found to have a normal uterus with normal adnexa. A weighted speculum was placed in the vagina, and the anterior lip of cervix was grasped with the single toothed tenaculum. A uterine manipulator was advanced into the endocervical canal and uterus. The tenaculum was removed after uterine manipulator was secured. The speculum was removed from the vagina. An intraumbilical incision was made with a scalpel. While tenting up on the abdomen, a Verres needle was admitted into the intra-abdominal cavity. A saline drop test was performed and noted to be within normal limits. Pneumoperitoneum was attained with 4 liters of carbon dioxide. The Verres needle was removed. A 5 mm Opitc view trocar and sleeve were admitted into the abdomen and laparoscopic confirmation of location was achieved. A second incision was made 3 cm above the symphysis pubis, and a 5 mm trocar sleeves were admitted into the abdomen under direct laparoscopic visualization without complication. A survey revealed normal abdominal anatomy with the exception of string adhesion to the right lower anterior abdominal wall. A 5 mm blunt probe was advanced through the second trocar sleeve, and light manipulation of ovaries and uterus to assess the posterior aspects was performed. The pelvic survey shows normal uterus, left and right adnexa. The patient was placed into Trendelenburg position. The fallopian tubes were inspected bilaterally and the fimbriated ends of the fallopian tubes were visualized bilaterally. Attention was then directed to the right side. The fallopian tube and mesosalpinx were grasped and the underlying mesosalpinx was c auterized and cut using the Ligasure device. Serial cauterization and cutting was used to separate the fallopian tube from the underlying mesosalpinx until it could be amputated cutting it approximated 2 cm from the cornua. Attention was then turned to the contralateral fallopian tube, which was removed in similar fashion. Both specimens were removed through the trocar and sent to pathology. While mobilizing the uterus at the end of the procedure the ZUMI uterine manipulator perforated the uterus at the fundus. Atemps to control the bleeding with cautery was unsuccessful. Then surgiseal was used but also unsuccesful. Laparoscopic suturing attempted but but the suture would tear through the uterus. Then decision was made to perform a mini lap to safely close the uterine perforation. A Pfannenstiel skin incision was made with the scalpel and carried through to the underlying layer of fascia with the Bovie. The fascia was nicked in the midline and the incision extended laterally with the Batres scissors. The superior aspect of the fascial incision was then grasped with Miguel Angel clamps and elevated and the underlying rectus muscle dissected off bluntly and sharp with batres scissors. Attention was then turned to the inferior aspect of the incision which, in similar fashion, was grasped and tented up with Miguel Angel clamps and the rectus muscle dissected bluntly. The rectus muscles were then in the midline and the peritoneum identified, tented up and entered sharply with Metzenbaum scissors. The peritoneal incision was then extended superiorly and inferiorly with good visualization of the bladder. Then a medium size Mario retractor was placed. The uterus was exposed and the perforation was close in layers with 0 Vicryl. Hemostasis was reassured. The abdomen was irrigated. The uterus was then returned to the abdomen. The fascia was reapproximated with 0 Vicryl in an interrupted running fashion. The skin was closed with Insorb?s subcuticular absorbable soham. The trocar port were removed insuring good hemostasis and closed with 3-0 Vicryl in a subcuticular fashion and Dermabond. The intraumbilical trocar sleeve was withdrawn and closed in the same manner w ith 3-0 Vicryl in a subcuticular fashion and Dermabond. The instruments were removed from the vagina, and excellent hemostasis was noted. The patient tolerated the procedure well, and sponge, lap and needle count were correct times two. The patient was taken to the recovery room in good condition. Anesthesia was asked to place a tap block.
--- NOTE | 2023-03-02 16:50 | ANE.PACU2 ---
Inpatient post-anesthesia follow up: Airway intact: Yes Vital signs: Temperature 97.7 F Pulse Rate 63 Respiratory Rate 18 Blood Pressure 111/71 Pulse Oximetry 99 Oxygen Delivery Me thod Room Air Oxygen Flow Rate 6 Fraction of Inspir ed Oxygen Hydration adequate: Yes Nausea and vomiting: No Pain level: 2 Mental status: Baseline
[2023-03-02] MEDS: ondansetron 2 mg/ML SDV 2 mL 4 MG IVP (17:42)
[2023-03-02] MEDS: ketorolac 30 mg/mL INJ IVP ×2 (17:42→22:45)
[2023-03-02] MEDS: docusate sodium 100 mg Capsule PO (22:43)
[2023-03-02] MEDS: simethicone 80 mg Chew PO (22:43)
[2023-03-03 00:15] VITALS: BP 103/66; PULSE 81; O2SAT 97
[2023-03-03 02:43] VITALS: BP 108/73; PULSE 98; O2SAT 96
[2023-03-03] MEDS: HYDROcodone-acetaminophen 5-325 mg Tablet PO (03:11)
[2023-03-03] MEDS: ketorolac 30 mg/mL INJ IVP (05:16)
[2023-03-03] MEDS: simethicone 80 mg Chew PO (05:17)
[2023-03-03 05:26] LABS: Hematocrit 28.5 % (37.0-47.0); Hemoglobin 9.3 g/dL (11.5-15.3); Mean Corpuscular HGB Conc 32.6 g/dL (30.0-36.0); Mean Corpuscular Volume 88.8 fl (81-99); Mean Platelet Volume 10.1 fL (7.4-10.4); Platelet Count 162 10^3/cmm (130-400); Red Blood Count 3.21 10^6/uL (4.1-5.3); Red Cell Distribution Width 12.9 % (12.1-15.1); White Blood Count 8.7 10^3/uL (4.0-10.0)
[2023-03-03 05:28] VITALS: BP 111/68; PULSE 76; RESP 18; TEMP 36.8; O2SAT 97
[2023-03-03 08:49] VITALS: BP 103/65; PULSE 88; RESP 16; TEMP 36.7; O2SAT 96
[2023-03-03] MEDS: docusate sodium 100 mg Capsule PO (08:56)
--- NOTE | 2023-03-03 11:11 | PM.OBGYDC ---
Discharge Providers AMMONIUM HYDROXIDE OPERATOR Date of Admission: 03/02/23 15:17 Date of Discharge: 03/03/23 Attending Provider at Admission: Conor Perry MD Attending Provider at Discharge: Conor Perry MD Primary Care Provider: Henrique Puentes MD Reason for Visit Reason for Visit: Z30.2 Hospital Course Hospital Course Mrs. Carbajal 37-year-old female G3, P3 admitted for prior laparoscopic bilateral salpingectomy for permanent sterilization. The procedure was complicated by uterine perforation by uterine manipulator toward the end of the procedure. Laparoscopic attempts to repair the perforation was unsuccessful and a mini lap was performed to repair the perforation without complication. Overnight postop observation was uneventful. She is afebrile hemodynamically stable postoperative day 1. Tolerating diet well. Ambulating without difficulty. Pain well under control. Adequate urine output. Patient was counseled regarding pelvic rest for 6 weeks (no sex, no tampons, no vaginal douches). Return to the emergency room if any fever, increased bleeding or pain. Physical Exam Narrative: GA: Alert and oriented ?3. HEENT: WNL. Heart: Regular rate and rhythm. Lungs: Clear to auscultation bilaterally. Abdomen: Bowel sounds present, nontender, minimal tenderness, incision clean and dry, no redness, pain or edema. CT TECHNOLOGIST: Spotting bleeding. Extremities: No edema, no cyanosis, no calves pain. Urinary Catheter Management: Davison: Cath Placed During This Visit: yes, but has since been removed by the nurse Reason for Continuing Indwelling Catheter: Decision to DC Catheter Urinary Catheter Date of Insertion: 03/02/23 Urinary Catheter Time of Insertion: 13:36 Date Urinary Catheter Removed: 03/03/23 Time Urinary Catheter Discontinued: 05:31 History History History 4 Term 3 0 Miscarriages/Ectopic 1 Living Children 3 Discharge Data Studies Completed and Pending Pending at discharge Category Date Time Status Type and Screen Routine Lab 02/28/23 10:06 Uncollected Pathology: Surgical [PTH] Routine Pth 03/02/23 14:22 Received Laboratory Results WBC 8.7 10^3/uL (4.0-10.0) 03/03/23 05:20 RBC 3.21 10^6/uL (4.1-5.3) L 03/03/23 05:20 Hgb 9.3 g/dL (11.5-15.3) L 03/03/23 05:20 Hct 28.5 % (37.0-47.0) L 03/03/23 05:20 MCV 88.8 fl (81-99) 03/03/23 05:20 MCH 29.0 pg (28.0-34.0) 03/03/23 05:20 MCHC 32.6 g/dL (30.0-36.0) 03/03/23 05:20 RDW 12.9 % (12.1-15.1) 03/03/23 05:20 Plt Count 162 10^3/cmm (130-400) 03/03/23 05:20 MPV 10.1 fL (7.4-10.4) 03/03/23 05:20 Neut % (Auto) 62.6 % 02/28/23 10:20 Lymph % (Auto) 27.2 % 02/28/23 10:20 [place] % (Auto) 6.1 % 02/28/23 10:20 Eos % (Auto) 3.6 % 02/28/23 10:20 Baso % (Auto) 0.3 % 02/28/23 10:20 Neut # (Auto) 3.68 10^3/uL (1.8-7.7) 02/28/23 10:20 Lymph # (Auto) 1.6 10^3/uL (0.8-4.8) 02/28/23 10:20 [place] # (Auto) 0.4 10^3/uL (0.2-0.9) 02/28/23 10:20 Eos # (Auto) 0.2 10^3/uL (0.0-0.8) 02/28/23 10:20 Baso # (Auto) 0.0 10^3/uL (0.0-0.1) 02/28/23 10:20 Nucleated RBC % (auto) 0 % 02/28/23 10:20 Nucleated RBCs # 0.0 /100WBC 02/28/23 10:20 Sodium 139 mmol/L (136-145) 02/28/23 10:20 Potassium 3.8 mmol/L (3.5-5.1) 02/28/23 10:20 Chloride 102 mmol/L (98-107) 02/28/23 10:20 Carbon Dioxide 24 mmol/L (22-29) 02/28/23 10:20 Anion Gap 16.8 (5-19) 02/28/23 10:20 BUN 21 mg/dL (6-20) H 02/28/23 10:20 Creatinine 0.7 mg/dL (0.5-0.9) 02/28/23 10:20 GFR Calculation 95.2 mL/min (90-130) 02/28/23 10:20 Glucose 78 mg/dL (65-115) 02/28/23 10:20 Calculated Osmolality 290 mOsm/kg (285-295) 02/28/23 10:20 Calcium 9.6 mg/dL (8.5-10.5) 02/28/23 10:20 Total Bilirubin 0.7 mg/dL (0.15-1.2) 02/28/23 10:20 AST 19 U/L (0-32) 02/28/23 10:20 ALT 26 U/L (0-33) 02/28/23 10:20 Alkaline Phosphatase 119 U/L (35-105) H 02/28/23 10:20 Total Protein 7.7 g/dL (6.6-8.7) 02/28/23 10:20 Albumin 4.5 g/dL (3.5-5.2) 02/28/23 10:20 Globulin 3.2 g/dL (1.3-4.6) 02/28/23 10:20 Urine Color Yellow (Yellow) 02/28/23 10:23 Urine Appearance Sl hazy (CLEAR) A 02/28/23 10:23 Urine pH 5 (5-7) 02/28/23 10:23 Ur Specific [place] 1.020 (1.005-1.030) 02/28/23 10:23 Urine Protein Neg (Negative) 02/28/23 10:23 Urine Glucose (UA) Norm (Normal) 02/28/23 10:23 Urine Ketones Negative (Negative) 02/28/23 10:23 Urine Blood Trace (Negative) H 02/28/23 10:23 Urine Nitrate Negative (Negative) 02/28/23 10:23 Urine Bilirubin Neg (Negative) 02/28/23 10:23 Urine Urobilinogen Norm mg/dL (Negative) 02/28/23 10:23 Ur Leukocyte Esterase Negative (Negative) 02/28/23 10:23 Urine RBC None /hpf (0-2) 02/28/23 10:23 Urine WBC 0-4 /hpf (0-5) H 02/28/23 10:23 Ur Squamous Epith Cells 5-10 /hpf (0-5) H 02/28/23 10:23 Amorphous Sediment Not Reportable 02/28/23 10:23 Urine Bacteria Trace /hpf (NONE) 02/28/23 10:23 Urine Mucus 2+ /hpf 02/28/23 10:23 Urine HCG, Qual Negative (Negative) 02/28/23 10:23 Vitals Last Vital Signs Temp 98.1 F 03/03/23 08:49 Pulse 88 03/03/23 08:49 Resp 16 03/03/23 08:49 BP 103/65 03/03/23 08:49 Pulse Ox 96 03/03/23 08:49 O2 Del Method Room Air 03/03/23 08:49 O2 Flow Rate 6 03/02/23 16:29 Discharge Plan Discharge Patient Disposition: Home Condition: Stable Prescriptions: New hydrocodone-acetaminophen 5-325 mg tablet 1 tab PO Q4H PRN (Reason: pain) Qty: 10 0RF acetaminophen 325 mg capsule 325 mg PO Q4H PRN (Reason: fever or pain) Qty: 60 0RF docusate sodium [Colace] 100 mg capsule 100 mg PO BID Qty: 60 0RF ibuprofen 800 mg tablet 800 mg PO TID PRN (Reason: pain) Qty: 60 0RF ferrous sulfate [Iron (ferrous sulfate)] 325 mg (65 mg iron) tablet 325 mg PO BID Qty: 60 0RF Continued PNV cmb#95-ferrous fumarate-FA [] 28 mg iron- 800 mcg Tablet 1 tab PO QAM Ness 1 tab PO DAILY Discharge Orders: Discharge Order (Routine); Ordered 03/03/23 Ordered By: Conor Perry Referrals: Conor Perry MD [Physician] - 03/16/23 2:30 pm (03/16/23 @2:30pm 04/21/23 @3:00pm ) Patient Instructions: Opioid Safety (DC), Salpingectomy (DC), OB Discharge Report, OB Food/Drug Interaction Guide, Opioid Safety, Post Anesthesia Care Activity Restrictions/Additional Instructions: 1. Please call [facility] on next working day to make your post-operative appointment in 2 weeks. 2. Please stay home until you come back to the clinic on first post-hospatilization check up. 3. Please follow instructions on your medications CAREFULLY. 4. If you have abdominal incision, do not cover it unless dressing is necessary because of drainage. OK to shower, but avoid bath. Leave steri-strips until they fall off. If they are still on one week after surgery, you may remove them. 5. If you had vaginal surgery or vaginal repair, Dr. Perry may instruct you to take SITZ bath. 6. Yellow, blood tinged odorous vaginal discharge is usually normal after hysterectomy or vaginal surgeries. 7. No SEXUAL INTERCOURSE, tampons, or douches until you are completely released from the post-operative care. 8. Avoid constipation by eating right and maybe using some Metamucil or Milk of Magnesia. 9. All prescription refills are given during the working hours. Please do no wait till it runs out. Call the clinic at [phone] before your medication runs out. The clinic will get in touch with your doctor to prescribe medications if necessary. 10. Please remain within 40 mile radius from our hospital because emergencies do happen now and then during the post-operative period. 11. If you have stairs at home, take one step at a time slowly and minimize the number of trips. It helps to stay in one floor for the next few days. No lifting except what you can lift by one hand until you are released from the post-operative care. 12. Driving is discouraged until you are well healed. It may be 3-4 weeks before you feel strong enough to drive. You should be able to turn and look through the rear window without pain and you should be able to push the brake pedal very hard without pain before you drive. No fast rules, but SAFETY should be your primary concern. DO NOT drive if you are on sedating medications such as narcotics. 13. Call the clinic (during working hours) to make urgent appointment or go to the Emergency room, if any of the following occurs: i. Vaginal bleeding becomes heavy, more than a period. ii. Incision becomes red and sore, or drains pus. iii. Your TEMPERATURE is over 100.4F or you have chill. iv. IV site becomes red and swollen (a little ``knot?? is usually OK) v. Persistent nausea and vomiting vi. Persistent constipation or diarrhea vii. Rash or allergic reaction to medications. Discharge Attestations AMMONIUM HYDROXIDE OPERATOR Time Spent in Discharge Care*: greater than 30 min Coding Level of Care Code Acute Code for Chg Fwd Diagnoses
[2023-03-03 11:55] VITALS: BP 102/67; PULSE 70; RESP 16; TEMP 36.8
[2023-03-03 12:10] VITALS: BP 102/67; PULSE 70; RESP 16; TEMP 36.8
== END 2023-03-03 12:11 | disposition home or self-care (01) ==
LOC: OBGYN 15:18
PROVIDERS: Admitting Provider Obstetrics & Gynecology; PCP Family Medicine; Visit Provider Obstetrics & Gynecology
PROC: (CPT 58661; principal; 2023-03-02 13:25)
PROC: (CPT 49000; 2023-03-02 13:25)
DX: Z30.2 Encounter for sterilization (principal); N99.71 Accidental puncture and laceration of a genitourinary system organ or structure during a genitourinary system procedure; Z53.31 Laparoscopic surgical procedure converted to open procedure
CPT/HCPCS: 58520; 58661; 36415; 80053; 81001; 84703; 85025; 85027; 88302; 96374; G0378; J1100; J1170; J1200; J1885; J2250; J2405; J2704; J2795; J3010; J3370; J3490; J7050

== ENCOUNTER → 2023-04-21 15:13 | Outpatient (BNVA) | payer MEDICAID, SELFPAY | PROVIDERS: PCP Family Medicine; Visit Provider Obstetrics & Gynecology | DX: Z12.4 Encounter for screening for malignant neoplasm of cervix (principal) | CPT/HCPCS: 87624 ==

== ENCOUNTER → 2024-11-01 15:31 | Outpatient (BNVA) | payer MEDICAID, SELFPAY | PROVIDERS: PCP Family Medicine; Visit Provider Family Medicine | DX: R50.9 Fever, unspecified (principal) | CPT/HCPCS: 87400; 87880 ==

== ENCOUNTER → 2024-12-04 17:22 | Outpatient (BNVA) | payer MEDICAID, SELFPAY | PROVIDERS: PCP Family Medicine; Visit Provider Emergency Medicine | DX: J02.9 Acute pharyngitis, unspecified (principal) | CPT/HCPCS: 87071; 87880 ==